=== PATIENT | female | born 1950 | race Caucasian/White ===

== ENCOUNTER → 2016-09-26 | Outpatient (CLI) | payer OTHER | LOC: FIMAGING 15:57 | PROVIDERS: ATTEND Physician Assistant | DX: M41.86 Other forms of scoliosis, lumbar region (principal); M51.86 Other intervertebral disc disorders, lumbar region; M99.73 Connective tissue and disc stenosis of intervertebral foramina of lumbar region; M25.78 Osteophyte, vertebrae ==

== ENCOUNTER 2018-01-03 16:01 | Emergency (ER) | payer OTHER ==
[2018-01-03] MEDS ORDERED: NS 500 ML IV ONE (16:27)
--- NOTE | 2018-01-03 16:29 | EDPHY ---
H & P Stated Complaint: abd pain/difficulty urinating Time Seen by Provider: 01/03/18 16:18 HPI/ROS: CHIEF COMPLAINT: Left-sided abdominal pain HISTORY OF PRESENT ILLNESS: 59-year-old female via private vehicle complaining of whole left sided abdominal pain which seems to have moved. Her pain is moderated since for starting earlier this afternoon. She denies nausea or vomiting. Denies bowel movement abnormality. Denies melena or hematochezia. Denies trauma. Denies headache. Denies dysuria hematuria increased frequency. REVIEW OF SYSTEMS: 10 systems reviewed and negative with the exception of the elements mentioned in the history of present illness PAST MEDICAL & SURGICAL HISTORY: Appendectomy. Cholecystectomy. Diverticulosis. Last colonoscopy 2 months ago [facility] [place] is Dr. Cummings SOCIAL HISTORY: nonsmoker PHYSICAL EXAM (Prior to examination, patient consented to physical exam, hands were washed and my usual and customary physical exam procedures followed) 1) GENERAL: Well-developed, well-nourished, alert and oriented. Appears to be in no acute distress. 2) HEAD: Normocephalic, atraumatic 3) HEENT: Pupils equal, round, reactive to light bilaterally. Sclera anicteric. Nasopharynx, oropharynx, clear, no lesions. Dry mucous membranes. 4) NECK: Full range of motion, no meningeal signs. 5) LUNGS: Clear auscultation bilaterally, no wheezes, no rhonchi, no retractions. 6) HEART: Regular rate and rhythm, no murmur, no heave, no gallop. 7) ABDOMEN: No guarding, tenderness to palpation left lower quadrant negative McBurney's, negative Cheung's, negative peritoneal sign, 8) MUSCULOSKELETAL: Moving all extremities, no focal areas of tenderness, no obvious trauma. No peripheral edema or discoloration. 9) BACK: No CVA tenderness, no midline vertebral tenderness, no fluctuance, no step-off, no obvious trauma, no visual or palpable abnormality. 10) SKIN: No rash, no petechiae. 11) Psychiatric: Patient is oriented X 3, there is no agitation. DIFFERENTIAL DIAGNOSIS: In no particular order including but not limited to nephrolithiasis, ureterolithiasis, diverticulitis, diverticular abscess, pyelonephritis - Personal History Tetanus Vaccine Date: 2009 - Medical/Surgical History Hx Asthma: No Hx Chronic Respiratory Disease: No Hx Diabetes: Yes Hx Cardiac Disease: No Hx Renal Disease: No Hx Cirrhosis: No Hx Alcoholism: No Hx HIV/AIDS: No Hx Splenectomy or Spleen Trauma: No Other PMH: low blood pressure; thyroid treated with med; hysyterectomy; gallbladder; ercp after that for more stones; depression - Social History Smoking Status: Never smoked Constitutional: Initial Vital Signs Temperature (C) 36.7 C 01/03/18 16:04 Heart Rate 96 01/03/18 16:04 Respiratory Rate 18 01/03/18 16:04 Blood Pressure 128/99 H 01/03/18 16:04 O2 Sat (%) 95 01/03/18 16:04 O2 Delivery Mode Room Air Allergies/Adverse Reactions: codeine Allergy (Verified 11/25/15 06:06) HEADACHE Home Medications: Medication Instructions Recorded Cholecalciferol Vit D3 [Vitamin D3 5,000 units PO DAILY 10/22/15 (*)] Herbals/Supplements -Info Only 1 ea PO DAILY 10/22/15 Magnesium Oxide [Magnesium Oxide 400 mg PO DAILY 10/22/15 400 mg (*)] Multivitamins [Multivitamin (*)] 1 each PO DAILY 10/22/15 [place]-3 Fatty Acids [Fish Oil 1000 1,000 mg PO DAILY 10/22/15 mg (*)] Zolpidem Tartrate [Ambien 5MG (*)] 5 - 10 mg PO HS PRN 10/22/15 SUMAtriptan [Imitrex 50 MG (*)] 50 mg PO Q2H PRN 11/25/15 Aspirin [Aspirin 81mg (*)] 81 mg PO DAILY #0 tab.chew 11/26/15 Levothyroxine [Synthroid 50 mcg 50 mcg PO DAILY06 #0 tab 11/26/15 (*)] OLANZapine [ZyPREXA 2.5 mg (*)] 2.5 mg PO HS #0 tab 11/26/15 oxyCODONE IR [Oxycodone Ir (*)] 5 - 10 mg PO Q3HRS PRN #0 tab 11/26/15 traMADol [Ultram 50 mg (*)] 50 mg PO Q6HRS PRN #0 tab 11/26/15 Medical Decision Making - Diagnostics Imaging Results: Imaging Impressions Abdomen CT 01/03/18 16:36 Impression: 1. Mild residual left-sided hydronephrosis presumably secondary to a recently passed calculus that now measures 2 mm and the bladder 2. Previous cholecystectomy, appendectomy, and hysterectomy. Findings discussed with Taniya Swanson PAC at 17:14 hour, 01/03/2018. Images reviewed myself ED Course/Re-evaluation: 4:29 p.m.: Bladder scan 76 cc. Will administer IV hydration, plan on CT imaging the abdomen. She is focally tender to palpation left lower quadrant. Will obtain urinalysis as was other diagnostic studies. 5:39 p.m.: Re-evaluation, patient is sitting upright reading a book, states that she is"totally better". Discussed her imaging results showing a 2 mm stone in the urinary bladder. Her urinalysis is negative for bacteriuria pyuria. Think the patient can be discharged home. She has no evidence of diverticulitis or intra-abdominal pathology beyond the urinary pathology. She feels comfortable being discharged. My usual and customary discharge precautions instructions provided. - Data Points Laboratory Results: Laboratory Results 01/03/18 16:22 01/03/18 16:22 01/03/18 01/03/18 01/03/18 17:00 16:27 16:22 WBC RBC Hgb POC Hgb 15.3 gm/dL gm/dL (12.6-16.3) Hct POC Hct 45 % % (38-47) MCV MCH MCHC RDW Plt Count MPV Neut % (Auto) Lymph % (Auto) [place] % (Auto) Eos % (Auto) Baso % (Auto) Nucleat RBC Rel Count Absolute Neuts (auto) Absolute Lymphs (auto) Absolute Monos (auto) Absolute Eos (auto) Absolute Basos (auto) Absolute Nucleated RBC Immature Gran % Immature Gran # POC Sodium 141 mEq/L mEq/L (135-145) Sodium 139 mEq/L mEq/L (135-145) POC Potassium 3.8 mEq/L mEq/L (3.3-5.0) Potassium 4.1 mEq/L mEq/L (3.3-5.0) POC Chloride 108 mEq/L mEq/L (97-110) Chloride 105 mEq/L mEq/L (97-110) Carbon Dioxide 22 mEq/l mEq/l (22-31) Anion Gap 12 mEq/L mEq/L (6-14) POC BUN 18 mg/dL mg/dL (7-23) BUN 18 mg/dL mg/dL (7-23) Creatinine 0.9 mg/dL mg/dL (0.6-1.0) POC Creatinine 0.9 mg/dL mg/dL (0.6-1.0) Estimated GFR > 60 Glucose 111 mg/dL H mg/dL (70-100) POC Glucose 113 mg/dL H mg/dL (70-100) Calcium 9.5 mg/dL mg/dL (8.5-10.4) Total Bilirubin 0.7 mg/dL mg/dL (0.1-1.4) Conjugated Bilirubin 0.2 mg/dL mg/dL (0.0-0.5) Unconjugated Bilirubin 0.5 mg/dL mg/dL (0.0-1.1) AST 26 IU/L IU/L (14-46) ALT 36 IU/L IU/L (9-52) Alkaline Phosphatase 90 IU/L IU/L (38-126) Total Protein 7.2 g/dL g/dL (6.3-8.2) Albumin 4.2 g/dL g/dL (3.5-5.0) Lipase 19 IU/L L IU/L (23-300) Urine Color PALE YELLOW Urine Appearance CLEAR Urine pH 6.0 (5.0-7.5) Ur Specific [place] 1.017 (1.002-1.030) Urine Protein NEGATIVE (NEGATIVE) Urine Ketones 1+ H (NEGATIVE) Urine Blood 2+ H (NEGATIVE) Urine Nitrate NEGATIVE (NEGATIVE) Urine Bilirubin NEGATIVE (NEGATIVE) Urine Urobilinogen NEGATIVE EU EU (0.2-1.0) Ur Leukocyte Esterase NEGATIVE (NEGATIVE) Urine RBC 1-3 /hpf /hpf (0-3) Urine WBC 1-3 /hpf /hpf (0-3) Ur Epithelial Cells TRACE /lpf /lpf (NONE-1+) Urine Glucose NEGATIVE (NEGATIVE) 01/03/18 16:22 WBC 9.84 10^3/uL H 10^3/uL (3.80-9.50) RBC 4.65 10^6/uL 10^6/uL (4.18-5.33) Hgb 14.8 g/dL g/dL (12.6-16.3) POC Hgb Hct 43.0 % % (38.0-47.0) POC Hct MCV 92.5 fL fL (81.5-99.8) MCH 31.8 pg pg (27.9-34.1) MCHC 34.4 g/dL g/dL (32.4-36.7) RDW 13.5 % % (11.5-15.2) Plt Count 260 10^3/uL 10^3/uL (150-400) MPV 9.9 fL fL (8.7-11.7) Neut % (Auto) 89.7 % H % (39.3-74.2) Lymph % (Auto) 7.0 % L % (15.0-45.0) [place] % (Auto) 2.5 % L % (4.5-13.0) Eos % (Auto) 0.1 % L % (0.6-7.6) Baso % (Auto) 0.4 % % (0.3-1.7) Nucleat RBC Rel Count 0.0 % % (0.0-0.2) Absolute Neuts (auto) 8.82 10^3/uL H 10^3/uL (1.70-6.50) Absolute Lymphs (auto) 0.69 10^3/uL L 10^3/uL (1.00-3.00) Absolute Monos (auto) 0.25 10^3/uL L 10^3/uL (0.30-0.80) Absolute Eos (auto) 0.01 10^3/uL L 10^3/uL (0.03-0.40) Absolute Basos (auto) 0.04 10^3/uL 10^3/uL (0.02-0.10) Absolute Nucleated RBC 0.00 10^3/uL 10^3/uL (0-0.01) Immature Gran % 0.3 % % (0.0-1.1) Immature Gran # 0.03 10^3/uL 10^3/uL (0.00-0.10) POC Sodium Sodium POC Potassium Potassium POC Chloride Chloride Carbon Dioxide Anion Gap POC BUN BUN Creatinine POC Creatinine Estimated GFR Glucose POC Glucose Calcium Total Bilirubin Conjugated Bilirubin Unconjugated Bilirubin AST ALT Alkaline Phosphatase Total Protein Albumin Lipase Urine Color Urine Appearance Urine pH Ur Specific [place] Urine Protein Urine Ketones Urine Blood Urine Nitrate Urine Bilirubin Urine Urobilinogen Ur Leukocyte Esterase Urine RBC Urine WBC Ur Epithelial Cells Urine Glucose Medications Given: Discontinued Medications Sodium Chloride (Ns) 500 mls @ 0 mls/hr IV ONCE ONE PRN Reason: Wide Open Stop: 01/03/18 16:28 Last Admin: 01/03/18 16:50 Dose: 500 mls Point of Care Test Results: Chemistry 01/03/18 16:27 POC Sodium 141 mEq/L mEq/L (135-145) POC Potassium 3.8 mEq/L mEq/L (3.3-5.0) POC Chloride 108 mEq/L mEq/L (97-110) POC BUN 18 mg/dL mg/dL (7-23) POC Creatinine 0.9 mg/dL mg/dL (0.6-1.0) POC Glucose 113 mg/dL H mg/dL (70-100) ISTAT H&H 01/03/18 16:27 POC Hgb 15.3 gm/dL gm/dL (12.6-16.3) POC Hct 45 % % (38-47) Departure - Departure Disposition: Home, Routine, Self-Care Clinical Impression: Ureterolithiasis Condition: Good Instructions: Ureteral Stones (ED) Additional Instructions: Return to the ER immediately if you experience fevers/chills, flu like symptoms , inability to tolerate oral intake, nausea or vomiting, or any other symptoms that concern you. Referrals: TYLER BURR MD [Primary Care Provider] - As per Instructions Pipo Garland MD [Medical Doctor] - 2-3 days, call for appt.
[2018-01-03] MEDS ORDERED: IOPAMIDOL (ISOVUE-300) 100 ML BTL ONE (16:38)
[2018-01-03 16:50] LABS: PLATELET COUNT 260 10^3/uL (150-400)
[2018-01-03 16:53] VITALS: BP 109/79
== END 2018-01-03 17:52 | disposition home or self-care (01) ==
DX: N20.1 Calculus of ureter (principal); K57.90 Diverticulosis of intestine, part unspecified, without perforation or abscess without bleeding; Z90.49 Acquired absence of other specified parts of digestive tract
CPT/HCPCS: 74177; 99285; Q9967; 82435-PO; 82565-PO; 82947-PO; 84132-PO; 84295-PO; 84520-PO; 85014-PO